=== PATIENT | male | born 1975 | race Caucasian/White ===

== ENCOUNTER 2023-07-08 10:14 | Emergency (ER) | payer OTHER, SELFPAY ==
[2023-07-08 10:28] VITALS: BP 140/100
[2023-07-08 11:06] VITALS: BMI 38.0
[2023-07-08 11:53] LABS: COVID-19 Antigen Negative (Negative)
[2023-07-08 12:50] VITALS: BP 132/92
--- NOTE | 2023-07-19 09:38 | ED.GENMED ---
History of Present Illness
General
Chief Complaint: Cold/Flu/URI Symptoms
Source: patient
Exam Limitations: none
Time Seen by Provider: 07/08/23 10:53
Nursing documentation reviewed up to this point in time: agreed with
Travel History
Have you had any contact with someone who has COVID-19?: No
Do you have any symptoms of coronavirus? Fever > 100 degrees, chills, cough, shortness of breath, sore throat, loss of taste or smell, muscle aches, or headache?: Yes
Symptoms:: fever, congestion, cough
History of Present Illness
History of Present Illness:
Patient is a 39-year-old male who presents to the ER for evaluation of fevers headache body aches and nasal congestion for the past 5 days. Patient reports fevers have been as high as 101. He has been using Tylenol last used Tylenol last night.
Patient reports he feels achy and lanes of bodyaches throughout including chest,muscles of arms and legs.
Past History
Past History
ED Past Medical History: GERD and HTN
ED Past Surgical History: Appendectomy, Orthopedic (Left Achilles tendon repair) and Other (Had incisional release of Gastro esophageal ring last month)
Social History
Tobacco: Non-smoker
Alcohol: None
Personal:
Living: with family
Employment: Employed
Review of Systems
Review of Systems
Allergies reviewed?: Yes
All Other Systems: ROS reviewed and negative except as documented in HPI and ROS
Constitutional: Reports fever, fatigue and chills
EENT: Reports other (nasal congestion )
Respiratory: Reports cough; Denies trouble breathing
Cardiac: Reports no symptoms
ABD/GI: Reports no symptoms
Musculoskeletal: Reports other (body aches )
Skin: Reports no symptoms
Neurological: Reports no symptoms
Psychiatric: Reports no symptoms
Phy Exam
General Physical Exam
General Presentation: no apparent distress
General age: appears stated age
General Skin: warm and dry
General Habitus: normal
General Mental: alert
Cardiovascular Exam
Cardiovascular Exam: regular rate/rhythm, no murmur and normal peripheral pulses
Pulmonary Exam
Pulmonary Exam: lungs clear and no respiratory distress
Neurological Exam
Neurological Exam: alert and oriented x3
[place] Coma Scale
Eye Opening: Spontaneous
Verbal Response: Oriented
Motor Response: Obeys Commands
GCS Total Score: 15
Musculoskeletal Exam
Musculoskeletal Exam: full ROM
Skin Exam
Skin Exam: normal color and warm/dry
Psychiatric Exam
Psychiatric Exam: normal mood/affect
Course
Orders/Labs/Results
Orders:
Orders
07/08/23 11:24
COVID-19 Antigen Urgent
Source: Nasal Swab
Influenza A+B Rapid Molecular Urgent
[facility] Source: Nasal Swab
Specimen Description:
Vital Signs
Initial and Last Documented VS:
Initial Vital Signs
Temp Pulse Resp BP Pulse Ox
98.9 F 100 16 140/100 100
07/08/23 10:28 07/08/23 10:28 07/08/23 10:28 07/08/23 10:28 07/08/23 10:28
Last Documented Vital Signs
Temp Pulse Resp BP Pulse Ox
100.1 F 83 17 132/92 98
07/08/23 12:50 07/08/23 12:50 07/08/23 12:50 07/08/23 12:50 07/08/23 12:50
MDM/Problems Addressed
Differential Diagnosis Includes:
Not limited to viral syndrome, COVID, influenza, bronchitis, pneumonia
MDM/Problems Addressed:
Patient is positive for influenza B he has nontoxic in no acute distress well-appearing out of the window for Tamiflu however very stable not hypoxic lungs are clear discussed supportive care with patient to be discharged home with outpatient
*Pulse Oximetry
Patient hypoxic: no
*Critical Care Note
Total Time (30-74mins, 75-104mins- exclusive of procedures): Not Applicable
ED Attending Note
-
Portions of this chart may have been created with voice recognition software.� Occasional wrong word or��sound alike� substitutions may have occurred due to the inherent limitations of voice recognition software.
Discharge Plan
Departure
Patient Disposition: Home (Routine Discharge)
Date of Disposition: 07/08/23
Time of Disposition: 12:39
Patient with high blood pressure during this ER visit?: Yes
Condition: Fair
Covid-19: Negative COVID-19
Discharge Problem:
Influenza
Instructions: Flu, Adult (DC), Fever, Adult (DC)
Prescriptions:
No Action
tramadol 50 mg tablet
50 mg PO Q8H PRN (Reason: Pain) Qty: 10 0RF
prednisone 20 mg tablet
40 mg PO DAILY Qty: 8 0RF
Referrals:
Keerthi Wilder MD [Family Provider] -
Activity Restrictions/Additional Instructions:
Increase fluids, get plenty rest. Alternate between Tylenol and ibuprofen. Follow-up with family doctor next several days and return if any worsening of symptoms.
Interventions
Interventions:
*Risk Screen - Suicide Last Done: 07/08/23 10:59
*General Assessment Last Done: 07/08/23 10:59
*Neglect/Abuse Screening Last Done: 07/08/23 10:59
ED- Fall Risk Assessment Last Done: 07/08/23 10:59
*ED COVID-19 Vaccine History Last Done: 07/08/23 10:59
*Nursing Disposition Last Done: 07/08/23 13:32
ED- Pulmonary Assessment Last Done: 07/08/23 10:59
Discharge Date and Time
Discharge Date/Time: 07/08/23 13:34
== END 2023-07-08 13:34 | disposition home or self-care (01) ==
LOC: EMR 10:14
PROVIDERS: Nurse Practitioner; EMERGENCY PHYSICIAN Emergency Medicine; FAMILY PHYSICIAN Family Medicine
DX: J10.1 Influenza due to other identified influenza virus with other respiratory manifestations (principal); R50.9 Fever, unspecified; K21.9 Gastro-esophageal reflux disease without esophagitis; I10 Essential (primary) hypertension
CPT/HCPCS: 99283; 87502; 87811